=== PATIENT | female | born 2000 | race Two or more races ===

== ENCOUNTER 2023-09-22 23:01 | Emergency (ER) | payer OTHER ==
[~2023-09-22] VITALS: Ht 149.9 cm; Wt 90.7 kg
[2023-09-23] MEDS ORDERED: CEPHALEXIN500 MG PO (00:59)
== END 2023-09-23 01:31 ==
LOC: ER 23:02
DX: S61.022A Laceration with foreign body of left thumb without damage to nail, initial encounter (principal); W26.0XXA Contact with knife, initial encounter; Y93.G3 Activity, cooking and baking; Y92.89 Other specified places as the place of occurrence of the external cause

== ENCOUNTER 2024-08-24 18:19 | Emergency (ER) | payer OTHER ==
[~2024-08-24] VITALS: Ht 162.6 cm; Wt 79.4 kg
[~2024-08-24 18:19] MED LIST: CEPHALEXIN500 MG PO
== END 2024-08-24 22:39 | disposition home or self-care (01) ==
LOC: ER 18:21
DX: J02.0 Streptococcal pharyngitis (principal); Z91.018 Allergy to other foods

== ENCOUNTER 2024-12-14 22:50 | Emergency (ER) | payer OTHER ==
[~2024-12-14] VITALS: Ht 162.6 cm; Wt 77.1 kg
[2024-12-14 22:55] VITALS: BP 113/73; O2SAT 100
[2024-12-15] MEDS ORDERED: LIDOCAINE HCL 1% 10ML VIAL ONE (00:07)
[2024-12-15] MEDS ORDERED: DIPHTH,PERTUSS(ACELL),TET VAC 0.5 ML SYRINGE IM ONE (00:07)
== END 2024-12-15 04:31 ==
LOC: ER 22:50
DX: S01.81XA Laceration without foreign body of other part of head, initial encounter (principal); W18.39XA Other fall on same level, initial encounter; Y93.89 Activity, other specified; Y92.511 Restaurant or cafe as the place of occurrence of the external cause; Y99.9 Unspecified external cause status; Z91.018 Allergy to other foods

== ENCOUNTER 2024-12-28 15:09 | Emergency (ER) | payer OTHER ==
[~2024-12-28] VITALS: Ht 162.6 cm; Wt 79.4 kg
== END 2024-12-28 16:27 | disposition home or self-care (01) ==
LOC: ER 15:10
DX: Z48.02 Encounter for removal of sutures (principal); Z91.018 Allergy to other foods

== ENCOUNTER 2025-04-02 19:28 | Emergency (ER) | payer OTHER ==
[~2025-04-02] VITALS: Ht 162.6 cm; Wt 77.1 kg
[2025-04-02 22:04] LABS: BASO % 0.3 % (0.1-1.2); EOS # 0.09 (0.04-0.54); EOS % 1.0 % (0.7-7.0); LYMPH # 1.97 (1.18-3.74); LYMPH % 21.8 % (19.3-53.1); MEAN PLATELET VOLUME 9.80 fl (9.4-12.4); MONO # 1.25 (0.24-0.82); NEUT # 5.64 (1.56-6.13); NEUT % 62.6 % (34.0-71.1); RED CELL DISTRIBUTION WIDTH 13.5 % (11.6-14.4)
[2025-04-02 22:06] LABS: MONO % 13.9 % (4.7-12.5)
[2025-04-02 22:37] LABS: COVID-19 AG NEGATIVE (NEGATIVE)
[2025-04-03] MEDS ORDERED: CEFTRIAXONE SODIUM 1,000 MG VIAL IM STA (01:49)
[2025-04-03] MEDS ORDERED: KETOROLAC TROMETHAMINE 30 MG VIAL IM ONE (02:00)
== END 2025-04-03 02:01 | disposition home or self-care (01) ==
LOC: ER 19:30
PROVIDERS: Preventive Medicine Public Health & General Preventive Medicine
DX: J06.9 Acute upper respiratory infection, unspecified (principal); Z91.018 Allergy to other foods; I10 Essential (primary) hypertension; Z20.822 Contact with and (suspected) exposure to COVID-19